=== PATIENT | male | born 1955 | race Caucasian/White ===

== ENCOUNTER 2021-06-16 12:44 | Observation (INO) | payer OTHER, SELFPAY ==
[2021-06-16 12:54] VITALS: BP 191/102; PULSE 84; RESP 21; O2SAT 99; BMI 21.2
--- NOTE | 2021-06-16 12:59 | ECG_ITS ---
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 Measurements Intervals [place] Rate: 82 P: 67 WA: 161 QRS: -1 QRSD: 93 T: 75 QT: 357 QTc: 418 Interpretive Statements SINUS RHYTHM POSSIBLE LEFT ATRIAL ENLARGEMENT [-0.1mV P-WAVE IN V1/V2] POSSIBLE LEFT VENTRICULAR HYPERTROPHY [VOLTAGE CRITERIA PLUS LAE OR QRS WIDENING] No previous ECG available for comparison Electronically Signed On 06-17-2021 7:32:59 AQUATIC PHYSIOTHERAPIST by Myriam Ferreira M.D. [id number] f
--- NOTE | 2021-06-16 13:00 | CT_ITS ---
WS: [id number] CT HEAD NONCONTRAST HISTORY: Weakness and altered mental status. TECHNIQUE: Contiguous axial imaging performed through the brain in 2.5 mm imaging. Bone and soft tiss ue windows. Sagittal and coronal reformats reviewed. All CT scans at [facility] use at least one of these dose optimization techniques: automated exposure control; mA and/or kV adjustment per pa tient size (includes targeted exams where dose is matched to clinical indication); or iterative recon struction. DLP: 863.81 mGy.cm COMPARISON: None available. No acute intracranial hemorrhage, midline shift or mass effect. Mild atrophy. Prior infarct involving the RIGHT external capsule anteriorly. No acute area of sulcal effacement or edema. Ventricles: Ventricles and extra-axial spaces are mildly dilated. No inferior displacement of cerebellar tonsils. Paranasal sinuses: As visualized are clear. Mastoid air cells: Well pneumatized. Calvarium and scalp: Skull is intact with no soft tissue edema or swelling. CT/CT head wo con* [id number] IMPRESSION: 1. No acute intracranial hemorrhage or edema. 2. Prior RIGHT external capsule infarct. 3. No new area of sulcal effacement.
--- NOTE | 2021-06-16 13:20 | ED_ITS ---
HPI - General Adult General: Chief complaint: Weakness Stated complaint: AMS, WEAKNESS, CONFUSED Time Seen by Provider: 06/16/21 12:50 History of Present Illness: HPI narrative: Patient is a 65-year-old male with no known past medical history presents the emergency room for evaluation of altered mental status. Patient was seen earlier to be in care clinic after driving himself there. While he got 30 patient is AO x2, confused complaining of generalized weakness. Patient also was noted to have high blood pressure in the 190s/110s. Provider at the clinic made the decision to transfer patient to the emergency room for further evaluation. On arrival, patient is AAO x2, tracking, unable to respond to questions. Per rescue, patient complains of generalized weakness and confusion. VSS. EKG from rescule showed peaked T wave inV3-V6, II/III/aVF Onset: unknown Duration:ongoing Location:home Severity:moderate/severe Review of Systems Narrative: ROS limited by clinical condition [facility] ED PFSH: Medical History Cataract CVA (cerebral vascular accident) Dementia Retinal detachment Seizure Surgical History H/O hernia repair Family History Denies family history of Diabetes Social History Smoking and tobacco status: never smoked Alcohol intake: never Substance/Drug Use: never Housing: House Marital status: Single Physical Exam Narrative: EXAM NARRATIVE: Head: Atraumatic Eyes: PERRL, conjunctiva without injection ENT: Mucous membrane moist NECK: Supple, ROM intact LUNGS: LCTAB, no crackles/rhonchi CV: RRR ABDOMEN: Soft, no focal TTP. NO guarding rebound, guarding, rigidity. No CVA tenderness to percussion. Neg Infante/Neg McBurney's point tenderness, no suprabupic tenderness to palpation. EXTREMITY: Normal ROM SKIN: No rash or erythema NEURO: Awake and alert x 2, not following commands, tracking PSYCH: Unable to assess given cognitive condition Course Vital Signs: Vital signs: Vital Signs Temperature 98.0 F 06/17/21 16:00 Pulse Rate 72 06/17/21 16:00 Respiratory Rate 16 06/17/21 16:00 Blood Pressure 115/75 06/17/21 16:00 Pulse Oximetry 95 06/17/21 16:00 MDM - General Adult MDM Narrative: Medical decision making narrative: See 68-year-old male with a history of dementia presenting to the emergency room for new onset of AMS from failure clinic. On exam arrival, patient is AAO x2, not really following com mands. Imaging studies with normal limit. CPK appears to be mildly elevated. Pending repeat after 2 L of fluid. Patient has diffuse tall T waves. No prior EKG for comparison. Repeat EKG did not show any evolution into STEMI-like pattern. Troponin of 40. Patient not complaining of chest pain. S/p aspirin. Will admit for AMS. CT head negative for any acute findings. Disposition: admission Lab Data: Labs: Lab Results 06/16/21 06/16/21 06/16/21 13:19 13:19 13:19 WBC 6.0 10^3/uL 10^3/ uL (4.0-10.0) RBC 5.09 10^6/uL 10^6 /uL (4.1-5.3) Hgb 14.6 g/dL g/dL (11.7-16.6) Hct 43.5 % % (42.0-52.0) MCV 85.5 fl fl (80-94) MCH 28.7 pg pg (28.0-34.0) MCHC 33.6 g/dL g/dL (30.0-36.0) RDW 12.8 % % (12.1-15.1) Plt Count 180 10^3/cmm 10^3 /cmm (130-400) MPV 10.4 fL fL (7.4-10.4) Neut % (Auto) 70.2 % % Lymph % (Auto) 12.1 % % [place] % (Auto) 15.6 % % Eos % (Auto) 1.0 % % Baso % (Auto) 0.8 % % Neut # (Auto) 4.18 10^3/uL 10^3 /uL (1.8-7.7) Lymph # (Auto) 0.7 10^3/uL L 10^ 3/uL (0.8-4.8) [place] # (Auto) 0.9 10^3/uL 10^3/ uL (0.2-0.9) Eos # (Auto) 0.1 10^3/uL 10^3/ uL (0.0-0.8) Baso # (Auto) 0.1 10^3/uL 10^3/ uL (0.0-0.1) Nucleated RBC % (a uto) 0 % % Nucleated RBCs # 0.0 /100WBC /100W BC Sodium 137 mmol/L mmol/L (136-145) Potassium 4.0 mmol/L mmol/L (3.5-5.1) Chloride 98 mmol/L mmol/L (98-107) Carbon Dioxide 24 mmol/L mmol/L (22-29) Anion Gap 19.0 (5-19) BUN 17 mg/dL mg/dL (8-23) Creatinine 1.0 mg/dL mg/dL (0.7-1.2) GFR Calculation 74.8 mL/min L mL/ min (90-130) Glucose 100 mg/dL mg/dL (65-115) Calculated Osmolal ity 286 mOsm/kg mOsm/ kg (285-295) Calcium 8.9 mg/dL mg/dL (8.5-10.5) Magnesium 1.9 mg/dL mg/dL (1.7-2.3) Total Bilirubin 0.5 mg/dL mg/dL (0.15-1.2) AST 58 U/L H U/L (0-40) ALT 34 U/L U/L (0-41) Alkaline Phosphata se 100 IU/L IU/L (40-130) Creatine Kinase 578 U/L H* U/L (39-308) Troponin T Baselin e 42 ng/L H ng/L (0-15) Total Protein 7.6 g/dL g/dL (6.6-8.7) Albumin 4.3 g/dL g/dL (3.5-5.2) Globulin 3.3 g/dL g/dL (1.3-4.6) Lipase 41 U/L U/L (13-60) Vitamin B12 TSH Free T4 Prolactin Salicylates < 0.3 mg/dL L mg/ dL (3-10) Acetaminophen < 5.0 ug/mL L ug/ mL (10-30) 06/16/21 06/16/21 13:19 13:19 WBC RBC Hgb Hct MCV MCH MCHC RDW Plt Count MPV Neut % (Auto) Lymph % (Auto) [place] % (Auto) Eos % (Auto) Baso % (Auto) Neut # (Auto) Lymph # (Auto) [place] # (Auto) Eos # (Auto) Baso # (Auto) Nucleated RBC % (a uto) Nucleated RBCs # Sodium Potassium Chloride Carbon Dioxide Anion Gap BUN Creatinine GFR Calculation Glucose Calculated Osmolal ity Calcium Magnesium Total Bilirubin AST ALT Alkaline Phosphata se Creatine Kinase Troponin T Baselin e Total Protein Albumin Globulin Lipase Vitamin B12 1085 pg/mL pg/mL (232-1245) TSH 3.76 uIU/mL uIU/m L (0.27-4.20) Free T4 1.38 ng/dL ng/dL (0.82-1.77) Prolactin 1.54 ng/mL L ng/m L (4.0-15.2) Salicylates Acetaminophen Imaging Data^: Other Imaging: Radiologist's impression: [employer] [id number] Scan ReportSigned Patient: Santiago James #: [id number]: 5Acct#:[id number]/Sex: 65 / MADM Date: 06/16/21Loc: ERRoom/Bed:Attending Dr: Ordering Provider/Ordering MD: Emil Knowles MD Date of Service: 06/16/21 Procedure(s): CT head wo con* [id number] Accession Number(s): [id number] Report Number: [id number] WS: [id number] CT HEAD NONCONTRAST HISTORY: Weakness and altered mental status. TECHNIQUE: Contiguous axial imaging performed through the brain in 2.5 mm imaging. Bone and soft tissue windows. Sagittal and coronal reformats reviewed. All CT scans at [facility] use at least one of these dose optimization techniques: automated exposure control; mA and/or kV adjustment per patient size (includes targeted exams where dose is matched to clinical indication); or iterative reconstruction. DLP: 863.81 mGy.cm COMPARISON: None available. No acute intracranial hemorrhage, midline shift or mass effect. Mild atrophy. Prior infarct involving the RIGHT external capsule anteriorly. No acute area of sulcal effacement or edema. Ventricles: Ventricles and extra-axial spaces are mildly dilated. No inferior displacement of cerebellar tonsils. Paranasal sinuses: As visualized are clear. Mastoid air cells: Well pneumatized. Calvarium and scalp: Skull is intact with no soft tissue edema or swelling. CT/CT head wo con* [id number] IMPRESSION: 1. No acute intracranial hemorrhage or edema. 2. Prior RIGHT external capsule infarct. 3. No new area of sulcal effacement. Discharge Plan Discharge Patient Disposition: Admitted As Inpatient Admit Provider: Bethany Sawyer Clinical Impression: Altered mental status, Elevated CPK, Elevated troponin, Abnormal ECG Condition: Stable Discharge Diet: Cardiac Discharge Activity: Increase activity as tolerated Coding Level of Care Code ED Supervisor [place] Department for Kerri Morin
[2021-06-16 13:24] LABS: Basophils # 0.1 10^3/uL (0.0-0.1); Basophils % 0.8 %; Eosinophils # 0.1 10^3/uL (0.0-0.8); Hematocrit 43.5 % (42.0-52.0); Hemoglobin 14.6 g/dL (11.7-16.6); Lymphocytes # 0.7 10^3/uL (0.8-4.8); Lymphocytes % 12.1 %; Mean Corpuscular HGB Conc 33.6 g/dL (30.0-36.0); Mean Corpuscular Hemoglobin 28.7 pg (28.0-34.0); Mean Corpuscular Volume 85.5 fl (80-94); Mean Platelet Volume 10.4 fL (7.4-10.4); Monocytes # 0.9 10^3/uL (0.2-0.9); Monocytes % 15.6 %; Neutrophils # 4.18 10^3/uL (1.8-7.7); Neutrophils % 70.2 %; Nucleated Red Blood Cells % 0 %; Platelet Count 180 10^3/cmm (130-400); Red Blood Count 5.09 10^6/uL (4.1-5.3); Red Cell Distribution Width 12.8 % (12.1-15.1)
[2021-06-16 13:43] LABS: Alanine Aminotransferase 34 U/L (0-41); Albumin Level 4.3 g/dL (3.5-5.2); Alkaline Phosphatase 100 IU/L (40-130); Aspartate Amino Transferase 58 U/L (0-40); Blood Urea Nitrogen 17 mg/dL (8-23); Calcium 8.9 mg/dL (8.5-10.5); Carbon Dioxide 24 mmol/L (22-29); Chloride 98 mmol/L (98-107); Globulin 3.3 g/dL (1.3-4.6); Glomerular Filtration Rate 74.8 mL/min (90-130); Glucose 100 mg/dL (65-115); Lipase 41 U/L (13-60); Magnesium 1.9 mg/dL (1.7-2.3); Osmolality Calculated 286 mOsm/kg (285-295); Sodium 137 mmol/L (136-145); Total Bilirubin 0.5 mg/dL (0.15-1.2); Total Protein 7.6 g/dL (6.6-8.7); Troponin(5th) Baseline 42 ng/L (0-15)
[2021-06-16 13:46] LABS: Acetaminophen < 5.0 ug/mL (10-30); Creatine Phosphokinase 578 U/L (39-308); Salicylate < 0.3 mg/dL (3-10)
[2021-06-16] MEDS: sodium chloride 0.9% 1,000 ML 999 ML IV ×2 (13:47→15:52)
--- NOTE | 2021-06-16 13:52 | ECG_ITS ---
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 Measurements Intervals [place] Rate: 83 P: 69 NH: 167 QRS: -2 QRSD: 90 T: 68 QT: 363 QTc: 427 Interpretive Statements SINUS RHYTHM POSSIBLE LEFT ATRIAL ENLARGEMENT [-0.1mV P-WAVE IN V1/V2] LEFT VENTRICULAR HYPERTROPHY AND ST-T CHANGE [VOLTAGE CRITERIA PLUS ST/T ABNORMALITY] Compared to ECG 06/16/2021 13:02:15 ST (T wave) deviation now present Electronically Signed On 06-17-2021 7:32:49 RETAIL WAREHOUSE SUPERVISOR by Myriam Ferreira M.D. [id number]
--- NOTE | 2021-06-16 14:59 | MRR_ITS ---
PROCEDURE INFORMATION: Exam: MR Head Without Contrast Exam date and time: 06/16/2021 2:59 PM Age: 65 years old Clinical indication: Altered mental status/memory loss; Additional info: Post seizure? TECHNIQUE: Imaging protocol: MR of the head without contrast. COMPARISON: CT head wo con* [id number] 06/16/2021 1:29 PM FINDINGS: Brain: Moderate cortical volume loss. Mild scattered foci of increased T2 FLAIR signal in periventricular and subcortical white matter. Old lacunar infarct in the anterior right lentiform nucleus and shannon radiata. No diffusion restriction. No intracranial hemorrhage. Cerebral ventricles: Normal. No ventriculomegaly. Bones/joints: Unremarkable. Paranasal sinuses: Normal as visualized. No acute sinusitis. Mastoid air cells: Normal as visualized. No mastoid effusion. Orbital cavity: Unremarkable. Soft tissues: Unremarkable. MR/MR head wo con* [id number] IMPRESSION: 1. No acute intracranial abnormality. 2. Mild microangiopathy.
[2021-06-16 15:10] LABS: Free T4 Free Thyroxine 1.38 ng/dL (0.82-1.77); Thyroid Stimulating Hormone 3.76 uIU/mL (0.27-4.20)
[2021-06-16 15:28] LABS: Prolactin 1.54 ng/mL (4.0-15.2)
[2021-06-16 15:47] LABS: Vitamin B12 1085 pg/mL (232-1245)
[2021-06-16] MEDS: labetalol 5 mg/mL SDV 20mL 20 MG IVP (15:53)
--- NOTE | 2021-06-16 15:56 | P.HP_ITS ---
Providers/Chief Complaint Chief Complaint: AMS, WEAKNESS, CONFUSED History of Present Illness Santiago James is a 65 year old male presented today for chief complaint of lethargy fatigue and confusion. Patient is stating that he lives alone, he does not have any family members, manages his daily activities on his own takes Plavix atorvastatin and medications for dementia. He is stating that night before yesterday he had 1 seizure which he is describing as whole body was shaking and he experienced tongue biting and urine incontinence, he stayed in his bed all night and the next day he did not have enough energy to get out of bed, on Saturday he drove himself to [facility] clinic and he was sent to the [facility] ER for further evaluation. He is denying recent fever, chest pain, shortness of breath. He is vaccinated for COVID-19. No recent infections. He is endorsing nausea however no vomiting. No UTI, diarrhea or strokelike symptoms. Patient is stating that his last seizure episode was after the diagnosis of stroke few years back. He is not completely sure about the timing. I called his friend who is a real estate asset manager. She is stating that he started getting sick 2 weeks ago, seizure episode was not witnessed by anyone, she did confirm that Mr. Briceño does not have any family, he has never been he does not have any children. 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 Diagnostics in the ER revealed normal CBC and BMP, mildly high CPK, I requested MRI head, prolactin, procalcitonin, TSH and B12. He is hypertensive blood pressure 201/116 mmHg, he saturating well on room air I have requested hydralazine IV push and Cardene drip, Dr. Knowles updated Patient was able to void in the urinal about 800 cc noted in the urinal. EKG showing tall T waves however no ST depression or ischemic changes, trend troponin no active chest pain Medications/Allergies Home Medications Medication Instructions Recorded Confirmed Last Taken Type aripiprazole [Abilify] 5 mg PO DAILY 06/16/21 06/16/21 06/15/21 History atorvastatin 20 mg PO DAILY 06/16/21 06/16/21 06/15/21 History clopidogrel [Plavix] 75 mg PO DAILY 06/16/21 06/16/21 06/15/21 History donepezil 10 mg PO DAILY 06/16/21 06/16/2121 History paroxetine HCl [Paxil] 40 mg PO DAILY 06/16/21 06/16/21 06/15/21 History Allergies Allergy/AdvReac Type Severity Reaction Status Date / Time aspirin Allergy Unknown Unknown Verified 06/16/21 14:03 salicylates Allergy Unknown Unknown Verified 06/16/21 14:03 PFSH Acute PFSH: Medical History Cataract CVA (cerebral vascular accident) Dementia Retinal detachment Seizure Surgical History H/O hernia repair Family History Denies family history of Diabetes Social History Smoking and tobacco status: never smoked Alcohol intake: never Substance/Drug Use: never Housing: House Marital status: Single Vitals/I&O/Wt Last Vital Signs Pulse 84 06/16/21 12:54 Resp 21 H 06/16/21 12:54 BP 191/102 06/16/21 12:54 Pulse Ox 99 06/16/21 12:54 06/16/21 06/16/21 06/16/21 06:59 14:59 22:59 Intake Total 1000 / 1007 Balance 1000 / 1007 Weight last 48 hrs Weight 74.843 kg Physical Exam Narrative: EXAM NARRATIVE: Patient was sitting at the bedside He had just voided urine Hemodynamically stable other than hypertension to 1/160 mmHg No focal deficit EOMI, PERRLA He has right-sided decreased vision secondary to retinal detachment history Otherwise able to follow commands Oriented to place and person but not time S1, S2 Nonfocal neuro exam No audible stridor or wheezing Saturating well on room air No joint swelling No signs of meningismus Expressionless Appears well-groomed Data : 06/16/21 13:19 06/16/21 13:19 A&P Assessment and plan (1) Altered mental status: Status: Acute (2) Elevated CPK: Status: Acute (3) Seizure: Status: Acute Additional A&P Information Confusion Patient is stating he had 1 episode of seizure, his last seizure was after the diagnosis of CVA I requested prolactin, procalcitonin, TSH, B12 and MRI head Requested hydralazine 20 mg IV push and if he stays hypertensive Cardene drip to be initiated Is full code will load him with Keppra Start cardiac diet Antihypertensive regimen Nonfocal neuro exam No signs of meningismus Doing well on room air We will follow up on UA He does have cold digits with blue nails, stating that this is chronic in his hands stay cold he does not smoke phone no of friend Ayaka [phone] Attestations Medical Necessity Statement*: 2 midnights anticipated Time Spent in Patient Care: Greater than 35 minutes Coding Level of Care Code Acute Copper Miner Blasting for g Fwd Diagnoses Altered mental status R41.82 Elevated CPK R74.8 Seizure R56.9
[2021-06-16 15:59] VITALS: BP 150/81; PULSE 81; RESP 16; O2SAT 98
--- NOTE | 2021-06-16 16:14 | XR_ITS ---
WS: [id number] XR chest 1V portable [id number] REASON FOR EXAM: Confusion FINDINGS: Mild tortuosity of the thoracic aorta. Normal heart size. Calcified granulomatous disease in both hemithoraces. No active pulmonary parenchymal or pleural disease noted. No significant abnormality of the bony thorax. XR/XR chest 1V portable [id number] IMPRESSION: No acute chest abnormality.
[2021-06-16 16:15] LABS: Amphetamines Screen Urine Negative (Negative); Barbiturates Screen Urine Negative (Negative); Benzodiazepines Screen Urine Negative (Negative); Cocaine Screen Urine Negative (Negative); Opiate Screen Urine Negative (Negative); PCP Screen Urine Negative (Negative); THC Screen Urine Negative (Negative)
[2021-06-16 16:20] LABS: Creatine Phosphokinase 525 U/L (39-308)
[2021-06-16 16:35] LABS: Add Urine Microscopic? YES; Bilirubin Urine Neg (Negative); Blood Urine 2+ (Negative); Glucose Urine UA Norm (Normal); Ketones Urine Negative (Negative); Leukocyte Esterase Urine Negative (Negative); Nitrate Urine Negative (Negative); Protein Urine Neg (Negative); Specific Gravity, Urine 1.005 (1.005-1.030); Urine Appearance Clear (CLEAR); Urine Color Yellow (Yellow); Urobilinogen Urine Norm (Negative); pH Urine 7 (5-7)
[2021-06-16 16:36] LABS: Add Urine Culture? No; WBC Urine 0-4 /hpf (0-5)
--- NOTE | 2021-06-16 18:59 | ECG_ITS ---
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 Measurements Intervals [place] Rate: 75 P: 86 WA: 186 QRS: -7 QRSD: 91 T: 74 QT: 372 QTc: 417 Interpretive Statements SINUS RHYTHM WITH OCCASIONAL SUPRAVENTRICULAR PREMATURE COMPLEXES POSSIBLE LEFT ATRIAL ENLARGEMENT [-0.1mV P-WAVE IN V1/V2] MINIMAL ST DEPRESSION [0.025+ mV ST DEPRESSION] Compared to ECG 06/16/2021 14:11:17 Left ventricular hypertrophy no longer present ST (T wave) deviation still present Electronically Signed On 06-17-2021 7:40:08 RETAIL MAINTENANCE TECHNICIAN by Myriam Ferreira M.D. [id number]
[2021-06-16 20:53] LABS: Troponin 5 6HR 41.89 ng/L (0-15)
[2021-06-16] MEDS: enoxaparin 40 mg/0.4 mL Syringe SUBCUT (20:55)
[2021-06-16 20:56] LABS: Troponin 5 6HR Delta -0.11 ng/L (0-12)
[2021-06-16 21:13] VITALS: PULSE 76
[2021-06-17] VITALS (8 sets, daily range): BP systolic 95–115; BP diastolic 64–75; PULSE 64–84; RESP 16–19; TEMP 36.7–37.1; O2SAT 94–99
[2021-06-17 05:43] LABS: Basophils % 0.8 %; Eosinophils # 0.1 10^3/uL (0.0-0.8); Hemoglobin 13.9 g/dL (11.7-16.6); Lymphocytes # 0.9 10^3/uL (0.8-4.8); Lymphocytes % 18.4 %; Mean Corpuscular HGB Conc 33.9 g/dL (30.0-36.0); Mean Corpuscular Hemoglobin 29.6 pg (28.0-34.0); Mean Corpuscular Volume 87.4 fl (80-94); Mean Platelet Volume 10.7 fL (7.4-10.4); Monocytes # 0.5 10^3/uL (0.2-0.9); Monocytes % 10.6 %; Neutrophils # 3.32 10^3/uL (1.8-7.7); Neutrophils % 67.8 %; Nucleated Red Blood Cells % 0 %; Platelet Count 165 10^3/cmm (130-400); Red Blood Count 4.69 10^6/uL (4.1-5.3); Red Cell Distribution Width 13.2 % (12.1-15.1); White Blood Count 4.9 10^3/uL (4.0-10.0)
[2021-06-17 05:59] LABS: Alanine Aminotransferase 27 U/L (0-41); Alkaline Phosphatase 84 IU/L (40-130); Anion Gap 17.9 (5-19); Aspartate Amino Transferase 36 U/L (0-40); Blood Urea Nitrogen 14 mg/dL (8-23); Calcium 8.7 mg/dL (8.5-10.5); Carbon Dioxide 23 mmol/L (22-29); Chloride 102 mmol/L (98-107); Globulin 2.8 g/dL (1.3-4.6); Glomerular Filtration Rate 84.4 mL/min (90-130); Glucose 108 mg/dL (65-115); Osmolality Calculated 289 mOsm/kg (285-295); Potassium 3.9 mmol/L (3.5-5.1); Sodium 139 mmol/L (136-145); Total Bilirubin 0.5 mg/dL (0.15-1.2); Total Protein 6.8 g/dL (6.6-8.7)
[2021-06-17 06:07] LABS: Creatine Phosphokinase 226 U/L (39-308); Magnesium 1.8 mg/dL (1.7-2.3)
[2021-06-17] MEDS: clopidogrel 75 mg Tablet PO (08:18)
[2021-06-17] MEDS: amlodipine 10 mg Tablet PO (08:18)
[2021-06-17] MEDS: atorvastatin 40 mg Tablet 20 MG PO (08:19)
[2021-06-17] MEDS: lisinopril 20 mg Tablet PO (08:19)
--- NOTE | 2021-06-17 09:33 | CTR_ITS ---
PROCEDURE INFORMATION: Exam: CT Angiography Head With Contrast, Arteriography Exam date and time: 06/17/2021 9:33 AM Age: 65 years old Clinical indication: Weakness; Additional info: HX of TIA, R sided weakness x 1 day TECHNIQUE: Imaging protocol: Computed tomography angiography of the head with contrast. Exam focused on the arteries. 3D rendering (Not supervised by radiologist): MIP and/or 3D reconstructed images were created by the technologist. Radiation optimization: All CT scans at this facility use at least one of these dose optimization techniques: automated exposure control; mA and/or kV adjustment per patient size (includes targeted exams where dose is matched to clinical indication); or iterative reconstruction. 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 Intracranial segment is patent with no significant stenosis. No aneurysm. Right middle cerebral artery: Unremarkable. No occlusion or significant stenosis. No aneurysm. Right anterior cerebral artery: Unremarkable. No occlusion or significant stenosis. No aneurysm. Left internal carotid artery: Unremarkable. Intracranial segment is patent with no significant stenosis. No aneurysm. Left middle cerebral artery: There is a short focal stenosis in the M1 segment of the left middle cerebral artery with about 75% stenosis.. No aneurysm. Left anterior cerebral artery: Unremarkable. No occlusion or significant stenosis. No aneurysm. POSTERIOR CIRCULATION: Right vertebral artery: Unremarkable. No occlusion or significant stenosis. No aneurysm. Left vertebral artery: Unremarkable. No occlusion or significant stenosis. No aneurysm. Basilar artery: Unremarkable. No occlusion or significant stenosis. No aneurysm. Right posterior cerebral artery: Unremarkable. No occlusion or significant stenosis. No aneurysm. Left posterior cerebral artery: There is focal greater than 70% stenosis at the origin of the P1 segment of the left posterior cerebral artery. No aneurysm. Brain: No definite mass, mass effect, or midline shift. Cerebral ventricles: No ventriculomegaly. Bones/joints: Unremarkable. No acute fracture. Soft tissues: Unremarkable. PROCEDURE INFORMATION: Exam: CT Angiography Neck With Contrast Exam date and time: 06/17/2021 9:33 AM Age: 65 years old Clinical indication: Weakness; Additional info: HX of TIA, R sided weakness x 1 day TECHNIQUE: Imaging protocol: Computed tomography angiography of the neck with contrast. 3D rendering (Not supervised by radiologist): MIP and/or 3D reconstructed images were created by the technologist. Radiation optimization: All CT scans at this facility use at least one of these dose optimization techniques: automated exposure control; mA and/or kV adjustment per patient size (includes targeted exams where dose is matched to clinical indication); or iterative reconstruction. Contrast material: OMNI 350; Contrast volume: 95 ml; Contrast route: INTRAVENOUS (IV); COMPARISON: MR head wo con* [id number] 06/16/2021 5:02 PM RADIATION DOSE METRICS: Total DLP (mGy-cm): 2179.47 FINDINGS: Right common carotid artery: No stenosis. No dissection or occlusion. Right internal carotid artery: No stenosis of the extracranial segment. No dissection or occlusion. Right external carotid artery: No occlusion or stenosis of the origin. Left common carotid artery: No stenosis. No dissection or occlusion. Left internal carotid artery: No stenosis of the extracranial segment. No dissection or occlusion. Left external carotid artery: No occlusion or stenosis of the origin. Right vertebral artery: No stenosis. No dissection or occlusion. Left vertebral artery: No stenosis. No dissection or occlusion. Soft tissues: Normal. No significant soft tissue swelling. Bones/joints: No acute fracture. CT/CT angio headneck* [id number] IMPRESSION: 1. There is a short focal stenosis in the M1 segment of the left middle cerebral artery with approximately 75% stenosis. 2. Greater than 70% stenosis at the origin of the left posterior cerebral artery. 3. No occlusions are seen. IMPRESSION: No stenosis or occlusion. REFERENCES: NASCET CRITERIA. The degree of internal carotid artery stenosis is based on NASCET criteria. Normal is no stenosis. Mild is less than 50% stenosis. Moderate is 50-69% stenosis. Severe is 70% to 99% stenosis. Total occlusion is no detectable patent lumen.
[2021-06-17] MEDS: iohexol 350 mg/mL 100 mL Btl IV (11:45)
--- NOTE | 2021-06-17 13:38 | PM.DCS ---
Discharge Providers Date of Admission: 06/16/21 14:38 Date of Discharge: June 17, 2021 Attending Provider at Admission: Bethany Sawyer MD Attending Provider at Discharge: Bethany Sawyer MD Diagnoses at Discharge Discharge Diagnosis (1) Altered mental status: Status: Acute (2) Elevated CPK: Status: Acute (3) Seizure: Status: Acute Reason for Visit Reason for Visit: AMS, WEAKNESS, CONFUSED Hospital Course Hospital Course History of Present Illness Santiago James is a 65 year old male presented today for chief complaint of confusion. Patient is stating that he lives alone, he does not have any family members, manages his daily activities on his own, takes Plavix atorvastatin and medications for dementia. He is stating that night before yesterday he had 1 seizure which he is describing as whole body was shaking and he experienced tongue biting and urinary incontinence, he stayed in his bed all night and the next day he did not have enough energy to get out of bed, on Saturday he drove himself to the clinic in [place] and he was sent to the [facility] ER for further evaluation. He is denying recent fever, chest pain, shortness of breath. He is vaccinated for COVID-19. No recent infections. He is endorsing nausea however no vomiting. No UTI, diarrhea or strokelike symptoms. Patient is stating that his last seizure episode was after the diagnosis of stroke few years back. He is not completely sure about the timing. I called his friend who is a real estate investor. She is stating that he started getting sick 2 weeks ago, seizure episode was not witnessed by anyone, she did confirm that Mr. Briceño does not have any family, he has never been he does not have any children. 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 Diagnostics in the ER revealed normal CBC and BMP, mildly high CPK, I requested MRI head, prolactin, procalcitonin, TSH and B12. He is hypertensive blood pressure 201/116 mmHg, he saturating well on room air I have requested hydralazine IV push and Cardene drip, Dr. Knowles updated Patient was able to void in the urinal about 800 cc noted in the urinal. EKG showing tall T waves however no ST depression or ischemic changes, trend troponin no active chest pain Hosp course Patient was admitted for evaluation and management of altered mental status/confusion. 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 Mcpherson who recommended follow-up in 2 weeks, patient does carry history of aspirin allergy, patient stated that he developed anaphylactic reaction, patient lives alone and there is no family, I have updated his friend Ayaka. Patient refused home health services and half-way however Ayaka requested us to arrange home health services, she would talk with Santiago to convince him. Considering underlying dementia and this breakthrough seizure episode ideally he should be under a supervised environment. Patient at the time of my evaluation does have capacity to make decisions he is not ready yet to be transferred to any facility. I have updated child welfare caseworker to arrange home health services. He will be discharged home on Plavix, atorvastatin and Keppra XR. I have discontinued his Abilify, he can continue his donepezil and SSRI. Driving restrictions until evaluated by Dr. Mcpherson in 2 weeks. 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, EOMI, PERRLA No tongue deviation No cerebellar deficits Romberg sign negative Sensations intact No signs of myoclonus S1, S2 Well-hydrated No respiratory distress saturating well on room air Discharge Data Data Completed and Pending: Completed Studies During Hospitalization Category Date Time Status CT angio headneck * [id number] Urge nt Cat Scan 06/17/21 09:[address] head wo con* 7 0450 Urgent Cat Scan 06/16/21 13:00 Completed XR chest 1V jose antonio ble [id number] Stat Exams 06/16/21 16:14 Completed MR head wo con* 7 0551 Urgent MRI 06/16/21 14:59 Completed Labs from last 24 hours 06/17/21 06/17/21 06/17/21 04:29 04:29 04:29 WBC 4.9 RBC 4.69 Hgb 13.9 Hct 41.0 L MCV 87.4 MCH 29.6 MCHC 33.9 RDW 13.2 Plt Count 165 MPV 10.7 H Neut % (Auto) 67.8 Lymph % (Auto) 18.4 [place] % (Auto) 10.6 Eos % (Auto) 2.0 Baso % (Auto) 0.8 Neut # (Auto) 3.32 Lymph # (Auto) 0.9 [place] # (Auto) 0.5 Eos # (Auto) 0.1 Baso # (Auto) 0.0 Nucleated RBC % (a uto) 0 Nucleated RBCs # 0.0 Sodium 139 Potassium 3.9 Chloride 102 Carbon Dioxide 23 Anion Gap 17.9 BUN 14 Creatinine 0.9 GFR Calculation 84.4 L Glucose 108 Calculated Osmolal ity 289 Calcium 8.7 Magnesium 1.8 Total Bilirubin 0.5 AST 36 ALT 27 Alkaline Phosphata se 84 Creatine Kinase 226 Troponin T Baselin e Troponin T 120 Min [place] Troponin T Troponin T Hi Sens 6Hr Troponin T Hi Sens 6Hr Delta C-Reactive Protein 12.0 H Total Protein 6.8 Albumin 4.0 Globulin 2.8 Lipase Vitamin B12 TSH Free T4 Prolactin Urine Color Urine Appearance Urine pH Ur Specific Gravit y Urine Protein Urine Glucose (UA) Urine Ketones Urine Blood Urine Nitrate Urine Bilirubin Urine Urobilinogen Ur Leukocyte Courtney ase Urine RBC Urine WBC Ur Squamous Epith Cells Amorphous Sediment Urine Bacteria Salicylates Urine Opiates Scre en Acetaminophen Ur Barbiturates Sc reen Ur Phencyclidine S crn Ur Amphetamines Sc reen U Benzodiazepines Scrn Urine Cocaine Scre en U Marijuana (THC) Screen 06/16/21 06/16/21 06/16/21 19:44 16:00 16:00 WBC RBC Hgb Hct MCV MCH MCHC RDW Plt Count MPV Neut % (Auto) Lymph % (Auto) [place] % (Auto) Eos % (Auto) Baso % (Auto) Neut # (Auto) Lymph # (Auto) [place] # (Auto) Eos # (Auto) Baso # (Auto) Nucleated RBC % (a uto) Nucleated RBCs # Sodium Potassium Chloride Carbon Dioxide Anion Gap BUN Creatinine GFR Calculation Glucose Calculated Osmolal ity Calcium Magnesium Total Bilirubin AST ALT Alkaline Phosphata se Creatine Kinase Troponin T Baselin e Troponin T 120 Min [place] Troponin T Troponin T Hi Sens 6Hr 41.89 H Troponin T Hi Sens 6Hr Delta -0.11 L C-Reactive Protein Total Protein Albumin Globulin Lipase Vitamin B12 TSH Free T4 Prolactin Urine Color Yellow Urine Appearance Clear Urine pH 7 Ur Specific Gravit y 1.005 Urine Protein Neg Urine Glucose (UA) Norm Urine Ketones Negative Urine Blood 2+ H Urine Nitrate Negative Urine Bilirubin Neg Urine Urobilinogen Norm Ur Leukocyte Courtney ase Negative Urine RBC 5-10 H Urine WBC 0-4 H Ur Squamous Epith Cells None Amorphous Sediment Not Reportable Urine Bacteria None Salicylates Urine Opiates Scre en Negative Acetaminophen Ur Barbiturates Sc reen Negative Ur Phencyclidine S crn Negative Ur Amphetamines Sc reen Negative U Benzodiazepines Scrn Negative Urine Cocaine Scre en Negative U Marijuana (THC) Screen Negative 06/16/21 06/16/21 06/16/21 15:27 15:27 13:19 WBC RBC Hgb Hct MCV MCH MCHC RDW Plt Count MPV Neut % (Auto) Lymph % (Auto) [place] % (Auto) Eos % (Auto) Baso % (Auto) Neut # (Auto) Lymph # (Auto) [place] # (Auto) Eos # (Auto) Baso # (Auto) Nucleated RBC % (a uto) Nucleated RBCs # Sodium Potassium Chloride Carbon Dioxide Anion Gap BUN Creatinine GFR Calculation Glucose Calculated Osmolal ity Calcium Magnesium Total Bilirubin AST ALT Alkaline Phosphata se Creatine Kinase 525 H* Troponin T Baselin e Troponin T 120 Min [place] 41.90 H Delta Troponin T -0.10 L Troponin T Hi Sens 6Hr Troponin T Hi Sens 6Hr Delta C-Reactive Protein Total Protein Albumin Globulin Lipase Vitamin B12 TSH Free T4 Prolactin 1.54 L Urine Color Urine Appearance Urine pH Ur Specific Gravit y Urine Protein Urine Glucose (UA) Urine Ketones Urine Blood Urine Nitrate Urine Bilirubin Urine Urobilinogen Ur Leukocyte [place] ase Urine RBC Urine WBC Ur Squamous Epith Cells Amorphous Sediment Urine Bacteria Salicylates Urine Opiates Scre en Acetaminophen Ur Barbiturates Sc reen Ur Phencyclidine S crn Ur Amphetamines Sc reen U Benzodiazepines Scrn Urine Cocaine Scre en U Marijuana (THC) Screen 06/16/21 06/16/21 06/16/21 13:19 13:19 13:19 WBC RBC Hgb Hct MCV MCH MCHC RDW Plt Count MPV Neut % (Auto) Lymph % (Auto) [place] % (Auto) Eos % (Auto) Baso % (Auto) Neut # (Auto) Lymph # (Auto) [place] # (Auto) Eos # (Auto) Baso # (Auto) Nucleated RBC % (a uto) Nucleated RBCs # Sodium 137 Potassium 4.0 Chloride 98 Carbon Dioxide 24 Anion Gap 19.0 BUN 17 Creatinine 1.0 GFR Calculation 74.8 L Glucose 100 Calculated Osmolal ity 286 Calcium 8.9 Magnesium 1.9 Total Bilirubin 0.5 AST 58 H ALT 34 Alkaline Phosphata se 100 Creatine Kinase 578 H* Troponin T Baselin e 42 H Troponin T 120 Min [place] Troponin T Troponin T Hi Sens 6Hr Troponin T Hi Sens 6Hr [place] C-Reactive Protein Total Protein 7.6 Albumin 4.3 Globulin 3.3 Lipase 41 Vitamin B12 1085 TSH 3.76 Free T4 1.38 Prolactin Urine Color Urine Appearance Urine pH Ur Specific Gravit y Urine Protein Urine Glucose (UA) Urine Ketones Urine Blood Urine Nitrate Urine Bilirubin Urine Urobilinogen Ur Leukocyte Court[place] ase Urine RBC Urine WBC Ur Squamous Epith Cells Amorphous Sediment Urine Bacteria Salicylates < 0.3 L Urine Opiates Scre en Acetaminophen < 5.0 L Ur Barbiturates Sc reen Ur Phencyclidine S crn Ur Amphetamines Sc reen U Benzodiazepines Scrn Urine Cocaine Scre en U Marijuana (THC) Screen Vitals: Last Vital Signs Temp 98.1 F 06/17/21 12:00 Pulse 67 06/17/21 12:00 Resp 16 06/17/21 12:00 BP 110/70 06/17/21 12:00 Pulse Ox 94 06/17/21 12:00 Discharge Plan Discharge Patient Disposition: Home Condition: Stable Prescriptions: New Plavix 75 mg tablet 75 mg PO DAILY Qty: 30 RF: 4 atorvastatin 40 mg tablet 40 mg PO DAILY Qty: 30 RF: 3 Keppra XR 500 mg tablet extended release 24 hr 1,000 mg PO DAILY Qty: 60 RF: 2 Continued donepezil 10 mg Tablet 10 mg PO DAILY RF: 0 Paxil 40 mg Tablet 40 mg PO DAILY RF: 0 Discontinued atorvastatin 20 mg Tablet 20 mg PO DAILY RF: 0 clopidogrel [Plavix] 75 mg Tablet 75 mg PO DAILY RF: 0 aripiprazole [Abilify] 5 mg Tablet 5 mg PO DAILY RF: 0 Discharge Orders: Discharge Order (Routine); Ordered 06/17/21 Ordered By: Bethany Sawyer Other Ambulatory Orders: DME: [facility] (Order) Location: None Selected Ordered By: Bethany Sawyer Referrals: Mary Ellen Mcpherson MD [Physician] - 2 weeks (V IMP f/u) Discharge Diet: Cardiac Discharge Activity: Increase activity as tolerated Patient Instructions: Altered Mental Status (GEN), New-Onset Seizure in Adults (DC), Driving Restrictions (ED), Opioid Safety Activity Restrictions/Additional Instructions: Please do not drive until your neurology follow-up appointment which will be in 2 weeks Keep on taking Plavix and atorvastatin You have atherosclerotic plaque of your brain vessels, no active stroke Brain MRI did not show active infarct For your seizure prophylaxis you will get Keppra on daily basis Discharge Attestations Time Spent in Discharge Care*: less than 30 min Quality Metrics Clinical Quality Measures During this hospital stay, did patient experience: None Coding Level of Care Code Acute Chg FW DC note Diagnoses Altered mental status R41.82 Elevated CPK R74.8 Seizure R56.9
--- NOTE | 2021-06-19 12:23 | PC.SOCIAL ---
spoke with [facility] and they reported they did accept pt and are admitting today.
== END 2021-06-17 16:30 | disposition home or self-care (01) ==
LOC: ER 14:54 → MEDSURG 18:55
PROVIDERS: Admitting Provider Internal Medicine; Emergency Provider Emergency Medicine; Visit Provider Internal Medicine
DX: R41.82 Altered mental status, unspecified (principal); R74.8 Abnormal levels of other serum enzymes; R56.9 Unspecified convulsions; M48.061 Spinal stenosis, lumbar region without neurogenic claudication; R26.81 Unsteadiness on feet; F03.90 Unspecified dementia, unspecified severity, without behavioral disturbance, psychotic disturbance, mood disturbance, and anxiety; Z86.73 Personal history of transient ischemic attack (TIA), and cerebral infarction without residual deficits
CPT/HCPCS: 36415; 70450; 70496; 70498; 70551; 71045; 80053; 80306; 80307; 81001; 82550; 82607; 83690; 83735; 84146; 84439; 84443; 84484; 85025; 86140; 93005; 96365; 96366; 96367; 96372; 96375; 97110; 97116; 97161; 99285; G0378; J0610; J1650; J1953; J3490; J7030; Q9967

== ENCOUNTER → 2021-06-20 16:10 | Outpatient (BNVA) | payer OTHER, SELFPAY | PROVIDERS: Visit Provider Nurse Practitioner Family | DX: S93.401A Sprain of unspecified ligament of right ankle, initial encounter (principal); X58.XXXA Exposure to other specified factors, initial encounter; R53.1 Weakness | CPT/HCPCS: 73610; 85379 ==

== ENCOUNTER → 2024-04-01 11:20 | Outpatient (BNVA) | payer MEDICARE, MEDICAID, SELFPAY | PROVIDERS: Visit Provider Nurse Practitioner Family | DX: R05.9 Cough, unspecified (principal) | CPT/HCPCS: 87400 ==

== ENCOUNTER → 2025-02-22 12:22 | Outpatient (BNVA) | payer OTHER, MEDICAID, SELFPAY | PROVIDERS: PCP Nurse Practitioner Family; Referring Provider Nurse Practitioner Family; Visit Provider Internal Medicine | DX: I77.1 Stricture of artery (principal); R07.9 Chest pain, unspecified; R01.1 Cardiac murmur, unspecified; R94.31 Abnormal electrocardiogram [ECG] [EKG] | CPT/HCPCS: 93005; 99204 ==

== ENCOUNTER 2025-03-02 15:23 | Outpatient (CLI) | payer OTHER, SELFPAY ==
--- NOTE | 2025-03-02 15:30 | CTR_ITS ---
PROCEDURE INFORMATION: Exam: CTA Neck With Contrast Exam date and time: 03/02/2025 3:58 PM Age: 69 years old Clinical indication: Condition or disease; Other: Left subclavian stenosis; Additional info: Subclavian stenosis, looking for subclavian stenosis TECHNIQUE: Imaging protocol: Computed tomographic angiography of the neck with contrast. Exam focused on the cervical segments of the vasculature. 3D rendering (Not supervised by radiologist): MIP and/or 3D reconstructed images were created by the technologist. Radiation optimization: All CT scans at this facility use at least one of these dose optimization techniques: automated exposure control; mA and/or kV adjustment per patient size (includes targeted exams where dose is matched to clinical indication); or iterative reconstruction. Contrast material: OMNI 350; Contrast volume: 100 ml; Contrast route: INTRAVENOUS (IV); COMPARISON: CT angio headneck* [id number] 06/17/2021 11:39 AM RADIATION DOSE METRICS: Total DLP (mGy-cm): 220.51 FINDINGS: Right common carotid artery: No stenosis. No dissection or occlusion. Right internal carotid artery: No stenosis of the extracranial segment. No dissection or occlusion. Right external carotid artery: No occlusion or stenosis of the origin. Left common carotid artery: No stenosis. No dissection or occlusion. Left internal carotid artery: No stenosis of the extracranial segment. No dissection or occlusion. Left external carotid artery: No occlusion or stenosis of the origin. Right vertebral artery: No stenosis. No dissection or occlusion. Left vertebral artery: There is asymmetrically attenuated enhancement of the left vertebral artery, probably due to inflow restriction from the subclavian stenosis and likely subclavian steal phenomenon. Duplex ultrasound may be performed to confirm reversal of flow in the left vertebral artery. There is no intrinsic stenosis. Left subclavian artery: There is eccentric atheromatous plaque causing significant short segment stenosis just beyond the origin of the left subclavian artery minimum luminal dimension of 2.7 mm. Soft tissues: Normal. No significant soft tissue swelling. Bones/joints: Cervical spondylosis is noted. CT/CT angio neck [id number] IMPRESSION: Short-segment stenosis just beyond the origin of the left subclavian artery due to eccentric atheromatous disease. 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 Suggest duplex ultrasounds to confirm reversal of flow. REFERENCES: NASCET CRITERIA. The degree of stenosis in the cervical segment of the internal carotid artery is based on NASCET criteria. Normal is no stenosis. Mild is less than 50% stenosis. Moderate is 50-69% stenosis. Severe is 70% to 99% stenosis. Total occlusion is no detectable patent lumen.
[2025-03-02 15:53] LABS: Blood Urea Nitrogen 12 mg/dL (8-23)
[2025-03-02] MEDS: iohexol 350 mg/mL 500 mL Btl (per mL) IV (16:05)
== END 2025-03-02 15:24 | disposition home or self-care (01) ==
LOC: RAD 15:26
PROVIDERS: PCP Nurse Practitioner Family; Visit Provider Internal Medicine
DX: I77.1 Stricture of artery (principal)
CPT/HCPCS: 70498; 82565; 84520

== ENCOUNTER → 2025-06-15 10:25 | Outpatient (BNVA) | payer MEDICARE, SELFPAY | PROVIDERS: PCP Nurse Practitioner Family; Referring Provider Nurse Practitioner Family; Visit Provider Specialist | DX: G30.9 Alzheimer's disease, unspecified (principal); R41.3 Other amnesia; F02.80 Dementia in other diseases classified elsewhere, unspecified severity, without behavioral disturbance, psychotic disturbance, mood disturbance, and anxiety | CPT/HCPCS: 36415; 82233; 82234; 82542; 82607; 82746; 83520; 96116; 99205 ==